=== PATIENT | male | born 1975 | race Caucasian/White ===

== ENCOUNTER 2016-07-19 08:40 | Emergency (ER) | payer MEDICAID ==
[~2016-07-19] VITALS: Ht 177.8 cm; Wt 79.5 kg
[2016-07-19 09:47] LABS: BASOPHILS % (AUTO) 0.9 % (0.0-2.0); EOSINOPHILS % (AUTO) 3.4 % (1.0-6.0); HEMATOCRIT 41.8 % (41-53); HEMOGLOBIN 13.6 g/dL (13.5-17.5); LYMPHOCYTES % (AUTO) 20.9 % (22.0-44.0); MEAN CORPUSCULAR HEMOGLOBIN 31.3 pg (26.0-34.0); MEAN CORPUSCULAR HGB CONC 32.5 G/dL (31.0-37.0); MEAN CORPUSCULAR VOLUME 96 fL (80-100); MONOCYTES # (AUTO) 0.5 K/uL (0.1-1.0); MONOCYTES % (AUTO) 5.5 % (2.0-9.0); NEUTROPHILS # (AUTO) 6.8 K/uL (1.8-7.7); NEUTROPHILS % (AUTO) 69.3 % (40.0-70.0); PLATELET COUNT (AUTO) 312 K/uL (150-450); RED BLOOD CELL COUNT(AUTO) 4.33 MIL/uL (4.50-5.90); RED CELL DISTRIBUTION WIDTH 13.1 % (11.5-14.5); WHITE BLOOD COUNT (AUTO) 9.8 K/uL (4.5-11.0)
[2016-07-19 09:59] LABS: PROTHROMBIN TIME 10.1 SEC (9.4-11.6)
[2016-07-19 10:04] LABS: B-TYPE NATRIURETIC PEPTIDE 21 pg/mL (0-100)
[2016-07-19 10:08] LABS: ANION GAP 6 mmol/L (8-16); CALCIUM, TOTAL 8.6 mg/dL (8.8-10.5); CARBON DIOXIDE 31 mmol/L (22-29); CHLORIDE 104 mmol/L (98-107); CREATININE 0.88 mg/dL (0.60-1.30); GLOMERULAR FILTR. RATE CALC > 60 mL/min (>60); POTASSIUM 4.1 mmol/L (3.5-5.1); SODIUM SERUM 141 mmol/L (136-145); UREA NITROGEN, BLOOD 16 mg/dL (7-18)
[2016-07-19 10:33] LABS: ALANINE AMINOTRANSFERASE 23 U/L (12-78); ALBUMIN 3.8 g/dL (3.4-5.0); ASPARTATE AMINOTRANSFERASE 19 U/L (15-37); BILIRUBIN,TOTAL 0.4 mg/dL (0.1-1.0); CREATINE KINASE, TOTAL 129 U/L (39-308); TOTAL PROTEIN, SERUM 6.9 g/dL (6.4-8.2)
[2016-07-19 10:49] LABS: APPEARANCE,URINE CLEAR (CLEAR); GLUCOSE, URINE (UA) NEGATIVE (NEGATIVE); KETONES,URINE NEGATIVE (NEGATIVE); LEUKOCYTE ESTERASE ,URINE NEGATIVE (NEGATIVE); OCCULT BLOOD,URINE SMALL (NEGATIVE); PROTEIN,URINE NEGATIVE (NEGATIVE)
[2016-07-19 10:53] LABS: ADD UA MICROSCOPIC YES
[2016-07-19 11:01] LABS: WBC,URINE 0-2 /HPF (0-5)
[2016-07-19 11:02] LABS: SQUAMOUS EPITHELIAL CELL,UR Rare /LPF (None Seen)
[2016-07-19 13:21] VITALS: BP 111/69
== END 2016-07-19 13:26 | disposition home or self-care (01) ==
LOC: EMS 08:41
DX: R07.89 Other chest pain (principal); F41.9 Anxiety disorder, unspecified; F12.90 Cannabis use, unspecified, uncomplicated
CPT/HCPCS: 93005; 99285

== ENCOUNTER 2016-08-09 12:34 | Emergency (ER) | payer MEDICAID ==
[~2016-08-09] VITALS: Ht 177.8 cm; Wt 79.5 kg
[2016-08-09 13:58] LABS: APPEARANCE,URINE CLEAR (CLEAR); GLUCOSE, URINE (UA) NEGATIVE (NEGATIVE); KETONES,URINE NEGATIVE (NEGATIVE); LEUKOCYTE ESTERASE ,URINE NEGATIVE (NEGATIVE); OCCULT BLOOD,URINE SMALL (NEGATIVE); PH,URINE 5.5 (5.0-8.0); PROTEIN,URINE NEGATIVE (NEGATIVE)
[2016-08-09 13:59] LABS: ADD UA MICROSCOPIC YES
[2016-08-09 14:07] LABS: RBC,URINE 0-2 /HPF (0-2); WBC,URINE None Seen /HPF (0-5)
[2016-08-09] MEDS ORDERED: LORazepam 0.5 MG TABLET PO ONE (17:45)
[2016-08-09 18:15] VITALS: BP 122/81
== END 2016-08-09 18:29 | disposition home or self-care (01) ==
LOC: EMS 12:37
DX: R07.9 Chest pain, unspecified (principal); F12.90 Cannabis use, unspecified, uncomplicated; G89.29 Other chronic pain; M54.9 Dorsalgia, unspecified; Z87.891 Personal history of nicotine dependence
CPT/HCPCS: 84443; 93005; 99285

== ENCOUNTER 2017-10-26 17:48 | Emergency (ER) | payer SELFPAY ==
[~2017-10-26] VITALS: Ht 177.8 cm; Wt 81.8 kg
[2017-10-26] MEDS ORDERED: LORazepam 2 MG TABLET PO ONE (19:45)
[2017-10-26 19:56] VITALS: BP 135/82
== END 2017-10-26 20:01 | disposition home or self-care (01) ==
LOC: EMS 17:50
DX: F41.8 Other specified anxiety disorders (principal); F12.90 Cannabis use, unspecified, uncomplicated
CPT/HCPCS: 99284